=== PATIENT | male | born 1965 | race Caucasian/White ===

== ENCOUNTER 2017-02-05 19:53 | Emergency (ER) | payer OTHER ==
[2017-02-05] MEDS ORDERED: SODIUM CHLORIDE 0.9% 1,000 ML IV STA ×2 (20:50)
[2017-02-05] MEDS ORDERED: ACETAMINOPHEN TAB 500 MG TAB PO STA (20:50)
--- NOTE | 2017-02-05 20:54 | ED ---
General Adult HPI - General Chief complaint: Fever Stated complaint: Sent by Dr Hernandez and Dr Mccall Time Seen by Provider: 02/05/17 20:12 Source: patient, family, RN notes reviewed Mode of arrival: ambulatory Limitations: no limitations - History of Present Illness Initial comments: Chief complaint history of present illness this is a 51-year-old male here with his significant other. The patient reports been in remission for lung cancer with past 18 months. He was treated with radiation and chemotherapy. Up until several days ago patient is also being treated for some dental infections he had one tooth pulled last month. More recently he was having cavities filled. 2 days ago he started having pain to his right front tooth and it became swollen on of the gingival line. Very tender. Appears to be infected. Current temperature is 101.8. 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 - Related Data Home Medications Medication Instructions Recorded Confirmed Ibuprofen [Advil] 400 mg PO Q8HR PRN 02/05/17 02/05/17 Previous Rx's Medication Instructions Recorded Levofloxacin [Levaquin] 750 mg PO DAILY #9 tab 02/05/17 Allergies Allergy/AdvReac Type Severity Reaction Status Date / Time No Known Allergies Allergy Verified 02/05/17 21:01 Review of Systems ROS Statement: Those systems with pertinent positive or pertinent negative responses have been documented in the HPI. review of systems no headache or visual acuity changes she has dental pain specifically this tooth #8. Occasional cough but no chest pain no GI/ problems or difficulty urinating no rashes. All systems are reviewed. Past medical problems significant for lung cancer diagnosed 18 months ago he received radiation and chemotherapy and he states he is in remission at this time. Patient has not had any surgeries. Family history grandfather had prostate cancer patient denies ALLERGIES. Quit smoking. occasional social use of alcohol. ROS Other: All systems not noted in ROS Statement are negative. Past Medical History Past Medical History: Cancer Additional Past Medical History / Comment(s): Lung CA History of Any Multi-Drug Resistant Organisms: None Reported Past Surgical History: No Surgical Hx Reported Past Psychological History: No Psychological Hx Reported Smoking Status: Current some day smoker Past Alcohol Use History: Occasional Past Drug Use History: None Reported General Exam - General Exam Comments Initial Comments: General: The patient is awake and alert, in no distress, and does not appear acutely ill. here because she's had a fever all day temperature 11.8 pulse 100 respiratory rate 20 pulse ox 90% room air blood pressure 130/89 Eye: Pupils are equal, round and reactive to light, extra-ocular movements are intact ; there is normal conjunctiva bilaterally. No signs of icterus. Ears, nose, mouth and throat: There are moist mucous membranes, probable dental abscess tooth #8. Neck: The neck is supple, there is no tenderness , no anterior cervical lymphadenopathy. No evidence of meningeal irritation or meningismus. Cardiovascular: tachycardic heart rate, 100.. No murmur, rub or gallop is appreciated. Respiratory: crepitant rales left base. The patient's cancer was on the left side as well. Patient reports at times at night hears crackling when he breathes. Gastrointestinal: Soft, non-distended, non-tender abdomen without masses or organomegaly noted. There is no rebound or guarding present. No CVA tenderness. Bowel sounds are unremarkable. Back: There is no tenderness to palpation in the midline. There is no obvious deformity. No rashes noted. Musculoskeletal: Normal ROM, no tenderness, There is no pedal edema. There is no calf tenderness or swelling. Sensation intact. Pulses equal bilaterally 2+. Neurological: no neuro deficits Skin: no skin rashes or infections Limitations: no limitations Course Vital Signs 02/05/17 19:55 Temperature 101.8 F H Pulse Rate 100 Respiratory 20 Rate Blood Pressure 130/89 O2 Sat by Pulse 98 Oximetry Medical Decision Making - Medical Decision Making Medical decision making; patient's white count is 3.5 hemoglobin 17 hematocrit 48 with a potassium 4.3, BUN 17 creatinine 0.79 and GFR greater than 60. Glucose 86. Urine clean no signs of infection. Chest x-ray is done and reviewed by radiologist his impression is there is PERRL thickening and infiltrate in the left lower lobe. The right lung is clear. Heart size is normal. Trachea is midline. There is no heart failure. Impression; there is pneumonic infiltrate with pleural fluid and atelectasis left lower lobe. No heart failure. As read by Dr. Patten case discussed Dr. Khoury on-call for Dr. Villatoro/Cheyanne varela. The patient be started on Levaquin 750 and he is to take this daily for the next 10 days. Also follow-up with Dr. Khoury and office. - Lab Data Result diagrams: 02/05/17 21:21 02/05/17 21:21 Lab Results 02/05/17 02/05/17 02/05/17 Range/Units 21:21 21:21 21:21 WBC 3.5 L (3.8-10.6) k/uL RBC 5.10 (4.30-5.90) m/uL Hgb 17.1 (13.0-17.5) gm/dL Hct 48.6 (39.0-53.0) % MCV 95.4 (80.0-100.0) fL MCH 33.5 (25.0-35.0) pg MCHC 35.1 (31.0-37.0) g/dL RDW 13.7 (11.5-15.5) % Plt Count 210 (150-450) k/uL Neutrophils % 81 % Lymphocytes % 9 % Monocytes % 8 % Eosinophils % 1 % Basophils % 1 % Neutrophils # 2.8 (1.3-7.7) k/uL Lymphocytes # 0.3 L (1.0-4.8) k/uL Monocytes # 0.3 (0-1.0) k/uL Eosinophils # 0.0 (0-0.7) k/uL Basophils # 0.0 (0-0.2) k/uL Sodium 134 L (137-145) mmol/L Potassium 4.3 (3.5-5.1) mmol/L Chloride 103 (98-107) mmol/L Carbon Dioxide 22 (22-30) mmol/L Anion Gap 9 mmol/L BUN 7 L (9-20) mg/dL Creatinine 0.79 (0.66-1.25) mg/dL Est GFR (MDRD) Af Amer >60 (>60 ml/min/1.73 sqM) Est GFR (MDRD) Non-Af >60 (>60 ml/min/1.73 sqM) Glucose 86 (74-99) mg/dL Calcium 8.8 (8.4-10.2) mg/dL Total Bilirubin 0.9 (0.2-1.3) mg/dL AST 25 (17-59) U/L ALT 29 (21-72) U/L Alkaline Phosphatase 104 (38-126) U/L Total Protein 7.1 (6.3-8.2) g/dL Albumin 4.1 (3.5-5.0) g/dL Urine Color Colorless Urine Appearance Clear (Clear) Urine pH 7.0 (5.0-8.0) Ur Specific Hope 1.001 (1.001-1.035) Urine Protein Negative (Negative) Urine Glucose (UA) Negative (Negative) Urine Ketones Trace H (Negative) Urine Blood Negative (Negative) Urine Nitrite Negative (Negative) Urine Bilirubin Negative (Negative) Urine Urobilinogen <2.0 (<2.0) mg/dL Ur Leukocyte Esterase Negative (Negative) Disposition Clinical Impression: Pneumonia, History of lung cancer Disposition: HOME SELF-CARE Condition: Stable Instructions: Fever in Adults (ED), Community Acquired Pneumonia (ED) Additional Instructions: Increase fluids, use Tylenol alternating with ibuprofen for fever. Take Levaquin daily. Follow-up with Dr. Khoury this or return emergency room as needed Prescriptions: Levofloxacin [Levaquin] 750 mg PO DAILY #9 tab Referrals: Rosa Maria Martinez MD [Primary Care Provider] - 1-2 days Time of Disposition: 22:47
[2017-02-05 21:34] LABS: Basophils % (A) 1 %; CH 33.3; Eosinophils % (A) 1 %; HCT 48.6 % (39.0-53.0); HDW 2.28; HGB 17.1 gm/dL (13.0-17.5); Luc # (Auto) 0.05; Luc % (Auto) 2; Lymphocytes # (A) 0.3 k/uL (1.0-4.8); Lymphocytes % (A) 9 %; MCH 33.5 pg (25.0-35.0); MCHC 35.1 g/dL (31.0-37.0); MCV 95.4 fL (80.0-100.0); Mean Platelet Volume 6.9; Monocytes # (A) 0.3 k/uL (0-1.0); Monocytes % (A) 8 %; Neutrophils # (A) 2.8 k/uL (1.3-7.7); Neutrophils % (A) 81 %; RDW 13.7 % (11.5-15.5); WBC 3.5 k/uL (3.8-10.6); WBC (Perox) 3.38
[2017-02-05 21:37] LABS: Appearance,Urine Clear (Clear); Bilirubin,Urine Negative (Negative); Glucose,Urine (UA) Negative (Negative); Ketones,Urine Trace (Negative); Leukocyte Esterase,Urine Negative (Negative); Nitrite,Urine Negative (Negative); Protein,Urine Negative (Negative); Specific Gravity,Urine 1.001 (1.001-1.035); UA Billing (MACRO vs. MICRO) CHEM; Urobilinogen,Urine <2.0 mg/dL (<2.0)
[2017-02-05 21:43] LABS: ALT 29 U/L (21-72); AST 25 U/L (17-59); Alkaline Phosphatase 104 U/L (38-126); Anion Gap 9 mmol/L; Blood Urea Nitrogen 7 mg/dL (9-20); Calcium 8.8 mg/dL (8.4-10.2); Carbon Dioxide 22 mmol/L (22-30); Chloride 103 mmol/L (98-107); Glucose 86 mg/dL (74-99); Non-African American GFR(MDRD) >60 (>60 ml/min/1.73 sqM); Potassium 4.3 mmol/L (3.5-5.1); Sodium 134 mmol/L (137-145); Total Bilirubin 0.9 mg/dL (0.2-1.3); Total Protein 7.1 g/dL (6.3-8.2)
--- NOTE | 2017-02-05 21:45 | XR ---
EXAMINATION TYPE: XR chest 2V DATE OF EXAM: 02/05/2017 COMPARISON: NONE HISTORY: Fever TECHNIQUE: Frontal and lateral views of the chest are obtained. FINDINGS: There is pleural thickening and infiltrate in the left lower lobe. The right lung is clear . Heart size is normal. Trachea is midline. There is no heart failure. IMPRESSION: There is pneumonic infiltrate with pleural fluid and atelectasis in the left lower lobe. No heart failure.
[2017-02-05] MEDS ORDERED: LEVOFLOXACIN 750 MG TAB PO STA (22:41)
[2017-02-05 22:48] VITALS: TEMP 99
[2017-02-05 23:10] VITALS: BP 115/67; PULSE 89; RESP 18
== END 2017-02-05 23:10 | disposition home or self-care (01) ==
LOC: EC 19:53
DX: J18.9 Pneumonia, unspecified organism (principal); F17.200 Nicotine dependence, unspecified, uncomplicated; Z85.118 Personal history of other malignant neoplasm of bronchus and lung
CPT/HCPCS: 36415; 71020; 80053; 81003; 85025; 87086; 96360; 96361; 99283